=== PATIENT | male | born 1960 | race Caucasian/White ===

== ENCOUNTER 2016-10-10 19:58 | Emergency (ER) | payer BC ==
[~2016-10-10] VITALS: Ht 190.5 cm; Wt 102.3 kg
[2016-10-10] MEDS ORDERED: LIPITOR 10M10 MG/TAB PO (20:05)
[2016-10-10] MEDS ORDERED: CYCLOBENZ5 MG PO (22:19)
[2016-10-10] MEDS ORDERED: NORCO 325 MG-51 TA1 PO (22:19)
[2016-10-10 22:45] VITALS: BP 159/106
== END 2016-10-10 22:55 | disposition home or self-care (01) ==
LOC: ED 19:58
DX: M62.830 Muscle spasm of back (principal); G89.29 Other chronic pain; S30.810A Abrasion of lower back and pelvis, initial encounter; S20.411A Abrasion of right back wall of thorax, initial encounter; S30.1XXA Contusion of abdominal wall, initial encounter; S20.312A Abrasion of left front wall of thorax, initial encounter; W22.09XA Striking against other stationary object, initial encounter; I10 Essential (primary) hypertension; Z87.891 Personal history of nicotine dependence
CPT/HCPCS: 90715; J1885; J2270; J7030; Q9967